=== PATIENT | female | born 1935 | race Caucasian/White ===

== ENCOUNTER 2017-02-25 06:53 | Outpatient (CLI) | payer MEDICARE, BC ==
[~2017-02-25] VITALS: Ht 160 cm; Wt 63.6 kg
[2017-02-25] VITALS (22 sets, daily range): BP systolic 123–167; BP diastolic 55–87; PULSE 45–79
[2017-02-25] MEDS ORDERED: PRINIVIL5 MG PO (07:27)
[2017-02-25] MEDS ORDERED: HCTZ 25MG TAB25 MG PO (07:28)
[2017-02-25] MEDS ORDERED: XANAX .25M0.25 MG/TA PO (07:29)
[2017-02-25] MEDS ORDERED: NEURONTIN300 MG/CAP PO (07:30)
[2017-02-25] MEDS ORDERED: NEURONTIN600 MG/TAB PO (07:30)
[2017-02-25] MEDS ORDERED: VITAMIN D31000 I1 PO (07:31)
[2017-02-25] MEDS ORDERED: ASPIRIN 81M81 MG/TA2 PO (07:32)
== END 2017-02-25 14:25 | disposition home or self-care (01) ==
LOC: COL.RAD 06:53
DX: M84.48XA Pathological fracture, other site, initial encounter for fracture (principal); I10 Essential (primary) hypertension
CPT/HCPCS: C1713; J2250; J3010; J7120